=== PATIENT | female | born 1965 | race African-American/Black ===

== ENCOUNTER 2018-02-21 14:39 | Outpatient (CLI) | payer OTHER ==
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
== END 2018-02-21 14:40 | disposition home or self-care (01) ==
LOC: SCSCT 14:39
PROVIDERS: ATTEND Family Medicine
DX: S16.1XXD Strain of muscle, fascia and tendon at neck level, subsequent encounter (principal); M48.02 Spinal stenosis, cervical region; M99.81 Other biomechanical lesions of cervical region; M47.892 Other spondylosis, cervical region; M43.12 Spondylolisthesis, cervical region
CPT/HCPCS: 72040; 72125

== ENCOUNTER 2018-03-16 09:06 | Outpatient (CLI) | payer OTHER ==
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
== END 2018-03-16 09:07 | disposition home or self-care (01) ==
LOC: SCSMRI 09:06
PROVIDERS: ATTEND Family Medicine
DX: S39.012D Strain of muscle, fascia and tendon of lower back, subsequent encounter (principal); M47.816 Spondylosis without myelopathy or radiculopathy, lumbar region; M51.27 Other intervertebral disc displacement, lumbosacral region
CPT/HCPCS: 72148